=== PATIENT | male | born 1950 | race Caucasian/White ===

== ENCOUNTER → 2017-06-27 | Outpatient (CLI) | payer MEDICARE, BC, OTHER ==
[~2017-06-27] MED LIST: ANDROGEL75 GM TOP; AVAPRO75 MG PO; ELIQUIS2.5 MG PO; ETODOLAC 400 M400 M1 PO; NIACIN500 MG PO; OXYCODONE HCL 55 MG PO; SYNTHROID50 MCG PO; ZOCOR20 MG PO
== END ==
LOC: M.CT 11:55
DX: R22.0 Localized swelling, mass and lump, head (principal)

== ENCOUNTER 2017-07-24 09:15 | Inpatient (IN) | payer MEDICARE, BC, OTHER ==
[2017-07-13 10:03] LABS: ABSOLUTE BASOPHILS 0.1 thou/uL (0.0-0.2); ABSOLUTE EOSINOPHILS 0.2 thou/uL (0.0-0.7); ABSOLUTE LYMPHOCYTES 2.2 thou/uL (0.8-5.3); ABSOLUTE MONOCYTES 0.9 thou/uL (0.0-1.2); ABSOLUTE NEUTROPHILS 4.1 thou/uL (1.6-8.1); BASOPHILS 1.5 %; EOSINOPHILS 2.6 %; HEMATOCRIT 49.6 % (42.0-52.0); LYMPHOCYTES 29.2 %; MCH 32.6 pg (26.0-34.0); MCHC 34.4 g/dL (28.0-37.0); MCV 94.8 fL (80.0-100.0); MONOCYTES 11.7 %; MPV 7.8 fl. (7.2-11.1); NUCLEATED RBCS 0 /100WBC; PLATELET COUNT* 201 thou/uL (150-400); RBC 5.23 mil/uL (4.50-6.00); RDW-CV 12.7 % (10.5-14.5); WBC 7.5 thou/uL (4.0-11.0)
[2017-07-13 10:11] LABS: PROTIME 10.2 Seconds (9.20-11.50)
[2017-07-13 10:20] LABS: ALBUMIN 3.3 g/dL (3.4-5.0); CALCIUM 8.8 mg/dL (8.5-10.1); POTASSIUM 4.1 mmol/L (3.5-5.1); TOTAL PROTEIN 6.8 g/dL (6.4-8.2)
[2017-07-13 11:08] LABS: ESR (SEDRATE) 3 mm/hr (0-20)
--- NOTE | 2017-07-13 14:47 | EKG ---
[place] [address] ELECTROCARDIOGRAM REPORT Name: KAREN OLIVA Room: PRE IN [facility]#: [id number] Admission: Attend Phys: Maryanne Mahmood Discharge: Date of : 52 Report #: [id number] THIS REPORT FOR: //name// [facility] Test Date: 2017-07-13 Test Time: 09:19:23 Pat Name: KARENCOLLINS OLIVA Department: Room: Gender: M Club Car Attendant: : 1950 Requested By: Taz Elmore Order Number: [id number] Reading MD: Leoncio Zuniga Measurements Intervals [place] Rate: 79 P: -31 WI: 141 QRS: -58 QRSD: 119 T: 117 QT: 328 QTc: 376 Interpretive Statements Sinus rhythm Incomplete RBBB and LAFB Left ventricular hypertrophy Nonspecific T abnormalities, lateral leads No previous ECG available for comparison Electronically Signed On 07-13-2017 14:47:04 BUFFET SERVER by Leoncio Zuniga [email or web address] <ELECTRONICALLY SIGNED> By: Leoncio Zuniga MD, [facility] 07/13/17 1447 0919 8 Leoncio Zuniga MD, FACC /EPI
[~2017-07-24] VITALS: Ht 180.3 cm; Wt 111.1 kg
[~2017-07-24 09:15] MED LIST changes: -ELIQUIS2.5 MG PO; -OXYCODONE HCL 55 MG PO
[2017-07-24 12:30] VITALS: BP 146/84
--- NOTE | 2017-07-24 18:30 | NUR ---
PT ARRIVED TO UNIT. PT A&OX4,ORIENTED TO ROOM. CALL LIGHT WITHIN REACH. AT BS.
[2017-07-24 19:01] VITALS: BP 156/75
[2017-07-25 00:52] VITALS: BP 142/78
[2017-07-25 04:41] VITALS: BP 125/64
[2017-07-25 04:44] LABS: HEMATOCRIT 44.3 % (42.0-52.0); HEMOGLOBIN 15.4 gm/dL (14.0-18.0)
--- NOTE | 2017-07-25 07:37 | NUR ---
PATIENT ALERT AND ORIENTED. VITALS STABLE. ON 1L OF OXYGEN. CPAP AT HS. FLUIDS INFUSING PER ORDER. UP WITH ASSIST X 1 TO BATHROOM. AMBULATED IN ROOM. RIGHT KNEE DRESSING C/D/I. ICEPACKS IN PLACE. PAIN CONTROLLED WITH PO MEDICATION. DENIES NAUSEA. HOURLY ROUNDS. BED ALARM IN USE. HOURLY ROUNDS. NURSING WILL CONTINUE TO MONITOR.
[2017-07-25 08:00] VITALS: BP 166/79
--- NOTE | 2017-07-25 09:14 | NUR ---
RECIEVED O.T. EVAL AND TX ORDERS. WILL DEFER TO P.T. AND NURSING AT THIS TIME. PLEASE ORDER FURTHER O.T. SERVICES IF NEEDED.
[2017-07-25 10:50] VITALS: BP 166/79
[2017-07-25] MEDS ORDERED: OXYCODONE HCL 55 MG PO (10:54)
[2017-07-25] MEDS ORDERED: ELIQUIS2.5 MG PO (10:55)
--- NOTE | 2017-07-25 11:15 | NUR ---
CALLED IN PRESCRIPTION FOR ELIQUIS, WRITTEN ,TO [facility]. LEFT ON PROVIDER LINE. WILL CALL BACK XIAO TO CHECK COPAY.
[2017-07-25 11:33] VITALS: BP 166/79
--- NOTE | 2017-07-25 11:38 | NUR ---
CM SPOKE TO THE PATIENT TO DISCUSS HOME SITUATION, DISCHARGE PLANNING, AND TO INFORM OF THE ROLE OF CM. PATIENT ALERT, ORIENTED, AND INDEPENDENT WITH ADL'S. PATIENT RESIDES AT HOME WITH AND SHE WILL ASSIST THE PATIENT AT HOME AT D/C. PATIENT OWNS A WALKER, AND CANE. PATIENT USES A CPAP AT HOME. PATIENT HAS NO HX OF HH OR SNF. PATIENT STATES THAT HE PLANS TO HAVE OUTPATIENT PT AT D/C WITH [facility]. CM WILL REMAIN AVAILABLE T0 ASSIST AND FOLLOW NEEDED.
--- NOTE | 2017-07-25 12:51 | NUR ---
ALERT AND ORIETNED X4. UP WITH STAND BY ASSIST WITH WALKER AND GAIT BELT. IV DC'D. PAIN BEING MANAGED WITH PO PAIN MEDICATION. DENIES NAUSEA. ATTENDED THERAPY THIS AM. MINOR HOSE IN PLACE BILATERALLY. ALL PERSONAL ITEMS LEFT WITH PATIENT. DISCHARGE INSTRUCTIONS, PRESCRIPTIONS, AND NEW MEDICATION INFORMATION SENT WITH PATIENT. VSS ON ROOM AIR. HOURLY ROUNDS HAVE BEEN MAINTAINED THROUGHOUT SHIFT. LEFT WITH VIA CAR.
[2017-07-25 12:55] VITALS: BP 166/79
--- NOTE | 2017-07-25 15:38 | NUR ---
I have reviewed the documentation by ZCAH OSBORNE from 07/25/17 to 07/25/17 and I concur with it. JOSE M FLORES
--- NOTE | 2017-07-27 12:52 | S ---
[address] [address] SURGICAL PATH RPT PROCEDURE Name: KAREN GERARDO Room: [address] IN .R.#: [id number] Admission: 07/24/17 Date of : 52 Discharge: 07/25/17 Report #: [id number] Path Case #: [id number] PATHOLOGY REPORT COLLECTION DATE: 07/24/2017 RECEIVED DATE: 07/25/2017 SUBMITTING PHYS: Dr. Taz Elmore OTHER PHYS: Dr. Jhony Mujica SPECIMEN(S) RECEIVED: A.Right knee bone and tissue * * * * * * * * * * * * FINAL DIAGNOSIS: Right knee bone and tissue, unicompartmental knee replacement: - Benign dense fibrous connective tissue and benign bone and cartilage with severe degenerative changes. (DONOVAN:db; 07/27/2017) PATHOLOGIST: Gurdeep Lopez M.D. REPORT ELECTRONICALLY SIGNED BY: Gurdeep Lopez M.D. DATE/TIME: 07/27/2017 12:52 * * * * * * * * * * * * GROSS PATHOLOGY: Received in formalin labeled "Karen Gerardo, right knee bone and tissue," are multiple segments of bone, including partial tibial plateau, measuring 8.3 x 5.5 x 0.8 cm in aggregate dimensions that appear grossly consistent with a unicompartmental knee replacement specimen. Scant attached soft tissue is present, and meniscus is absent. The specimen shows focal eburnation of the articular surfaces. Room Cooler Installer sections of bone and soft tissue are submitted in cassette A1, following decalcification. (DAC; 07/26/2017) CLINICAL HISTORY: Right knee degenerative joint disease INITIAL CPT CODE(S): A; 01451, 65415 Professional services performed by [facility] at [facility], [address] [place] [address]., [place] [address]. [facility] at [address] [place] [address], [address] [address]. [place] [address] SURGICAL PATH RPT PROCEDURE Name: KAREN GERARDO Room: [address] M.R.#: [id number] Admission: 07/24/17 Date of : 52 Discharge: 07/25/17 Report #: [id number] Path Case #: [id number] [facility] [address] PHONE: [phone] DIRECTOR: Wicho Street M.D. * * * END OF REPORT * * *
--- NOTE | 2017-07-31 12:12 | OP ---
[address] [address] OPERATIVE REPORT Name: HAZELKAREN L Room: [address]#: [id number] Admission: 07/24/17 Attend Phys: Louis Mujica MD Discharge: 07/25/17 Date of : 52 Report #: [id number] THIS REPORT FOR: //name// CC: Louis Elmore DATE OF SERVICE: 07/24/2017 PREOPERATIVE DIAGNOSIS: Advanced degenerative joint disease, right knee. POSTOPERATIVE DIAGNOSIS: Advanced degenerative joint disease, right knee. PROCEDURE: Right unicompartmental knee arthroplasty. SURGEON: Taz Elmore DO. GRAVEL MACHINE OPERATOR: Dorian Hernandez DO and Joseph Cruz DO. ANESTHESIA: General endotracheal and adductor block. IMPLANTS: A [employer]omet unicompartmental knee system [place] with a size C right medial tibial tray, a size medium 2 pegged femur, a size 4 mm thick meniscal bearing. ESTIMATED BLOOD LOSS: 100 mL. ANTIBIOTICS: 2 grams Ancef IVPB 30 minutes prior to incision. SPECIMENS: None. COMPLICATIONS: None. DISPOSITION: To recovery room in stable condition. INDICATIONS FOR SURGERY: The patient is a 66-year-old male who has failed conservative treatment to date with severe right knee pain. He has advanced degenerative joint disease with [id number] apposition of the medial joint space of his right knee. He has a fixed flexion contracture 5 degrees. He is able to show slight straightening of the varus deformity noted. The patient has pain on everyday activities. He is now awakened at night. He has failed conservative treatment in the form of multiple injections, anti-inflammatories by mouth, bracing. He has had physical therapy and he has also done behavioral modification. Risks and complications were discussed in detail with the patient. These include but are not limited to neurovascular damage, infection, fracture, need for further surgery, failure of the prosthesis, [place] [address] OPERATIVE REPORT Name: KAREN OLIVA Katarzyna Room: [address]#: [id number] Admission: 07/24/17 Attend Phys: Louis Mujica MD Discharge: 07/25/17 Date of : 52 Report #: [id number] prosthesis, allergy developed to prosthesis, deep vein thrombosis, pulmonary emboli, myocardial infarction, rhabdomyolysis, even . All questions were answered. A signed informed consent is attached to the chart, may refer to and his knee is marked preoperatively for timeout technique. SURGICAL PROCEDURE: The patient was taken to the operating suite, placed on the operating table in supine position. Following general endotracheal anesthetic and adductor block, his right leg was prepped and draped in usual sterile fashion with a tourniquet at the proximal right thigh, which was placed up to 290 mmHg pressure. Then, the leg was placed on the [place] leg esqueda. All pressure points well padded. Timeout technique is utilized to verify appropriate surgical site, procedures, concerns, allergies and implants. A medial incision is made, a medial arthrotomy incision through skin and subcutaneous tissue down to the capsule. A capsulorrhaphy was then performed to the medial aspect of the patella. The medial meniscus was removed. Some of the fat pad was removed to the patella as well as some fat to the tissue medially. The lateral joint is thoroughly examined and there is no arthritic change to the femoral condyle and/or tibial plateau. The lateral meniscus is intact. The ACL is intact and stable. Therefore, decision to proceed with unicompartmental knee is made at this time. The osteophytic lipping medially and in the intercondylar notch is removed with a small osteotome and rongeur. The external tibial guide is applied in all planes and a resection is made to the proximal tibia roughly 2-3 mm below the lowest point on the tibia. It is then checked with the appropriate sized tibial tray, size C and a 3 mm spacer. A second resection was performed with a 2 mm more of the resection and the size 3 and 4 spacer fit at 110 degrees quite well. Therefore, the cut was appropriate. Next, an intramedullary nail is placed to the femur after a starter hole was performed approximately 1 cm attachment of the PCL anteriorly. Once the intramedullary mynor is inserted, the distal femoral cutting guide is applied and aligned in all planes and the 2 step drills were placed. The cutting guide is then removed. The cutting block is placed into the step drill holes. The posterior condylar cut was then performed and removed. The cutting guide was removed and the zero spigot is placed. The distal femur medial side is reamed with a circular reamer. A trial reduction is performed with the femoral component and a tibial tray and the size 4 spacer at 110 degrees flexion. It is then tried again at 20 degrees flexion and the #1 tayler did not fit; therefore, a size 4 spigot was obtained. A second reaming is performed to the size 4. The extra bone is removed from the tip of the spigot hole as well as posterior condyle. Trial reduction was performed once again and the 4 mm spacer fit equally at the 110 degree and the 20 degree. The posterior cutting check block is placed on the medial femur and this posterior condyle was checked for osteophytes, none were noted. The proximal anterior aspect of the femur was then reamed to get rid of any bone that might impinge on extension to the tibial bearing. The checking block is removed. The tibia is then prepared for the final finned tibial tray by placing a trial tray on the tibia pinning into place and using the toothbrush saw to prepare for the fin. This was then checked with the specialized [place] [address] OPERATIVE REPORT Name: KAREN OLIVA Katarzyna Room: [address]#: [id number] Admission: 07/24/17 Attend Phys: Louis Mujica MD Discharge: 07/25/17 Date of : 52 Report #: [id number] Copious irrigation carried out throughout the knee. The knee is then drilled in a pattern with the cement drill for better interdigitation on the femur and the tibia. One bag of [place] cement plain was mixed on the back table while pulsatile lavage utilized to thoroughly cleanse the knee. The knee was thoroughly dried. Once the cement was appropriate, it was placed onto the final components and cement was then placed on to the tibia, pressurized into the interstices of bone with a cement spatula. Once the cement was in place, the final component was then impacted firmly into place with the microscope impactor and mallet. All excess cement was removed. The femur was then impacted after placing cement into the interstices of the bone of the femur as well as placed him on the final component. Once again, all excess cement was removed. A trial 4 mm spacer was placed. Knee was placed through range of motion. This was the appropriate size spacer with excellent range of motion, excellent stability through an arc of 0-130 degrees easily. The final component was obtained. Trial component was removed. Posterior capsule of the knee is injected with the anesthetic solution. Copious irrigation carried out throughout the incision and the final spacer is a tibial meniscal bearing is then placed. This was a very stable configuration with excellent range of motion and good balance throughout the entire arc of motion. Copious irrigation carried out one more time through the knee. The knee is then sprinkled with vancomycin powder throughout the all soft tissue areas. The knee is then closed with a #1 Stratafix suture running to the capsule. Skin is then reapproximated with the use of 2-0 Monocryl subcutaneous sutures in interrupted fashion followed by running 3-0 Stratafix subcuticular suture reinforced with Dermabond glue. The knee is held at 45 degrees of flexion with pressurization across the knee during the closure and cement hardening. After glue hardening, the Mepilex dressing was applied followed by a thigh high MINOR hose. The patient tolerated the procedure well and was taken to recovery in stable condition. No complications encountered. Final sponge and instrument counts correct x 2. <ELECTRONICALLY SIGNED> By: Taz Elmore DO 07/31/17 1212 1720 [id number] Elmore DO /nt
== END 2017-07-25 12:55 | disposition home or self-care (01) | DRG 470 ==
LOC: M.PRE 09:15 → M.TBA 12:25 → M.ORTHSURG 12:25 → M.PRE 12:38 → M.ORTHSURG 18:35
PROVIDERS: Orthopaedic Surgery; ADMIT Internal Medicine
PROC: 0SRC0L9 Replacement of Right Knee Joint with Medial Unicondylar Synthetic Substitute, Cemented, Open Approach (ICD-10-PCS; principal; 2017-07-24)
DX: M17.11 Unilateral primary osteoarthritis, right knee (principal); Z79.899 Other long term (current) drug therapy; E87.5 Hyperkalemia; E03.9 Hypothyroidism, unspecified; G47.30 Sleep apnea, unspecified; L53.8 Other specified erythematous conditions

== ENCOUNTER → 2018-01-15 | Outpatient (CLI) | payer MEDICARE, BC, OTHER ==
[~2018-01-15] MED LIST changes: +ELIQUIS2.5 MG PO; +OXYCODONE HCL 55 MG PO
== END ==
LOC: M.RAD 11:30
DX: J18.9 Pneumonia, unspecified organism (principal); R06.00 Dyspnea, unspecified

== ENCOUNTER → 2018-02-07 | Outpatient (CLI) | payer MEDICARE, BC, OTHER | LOC: M.RAD 10:39 | DX: M47.816 Spondylosis without myelopathy or radiculopathy, lumbar region (principal); R06.09 Other forms of dyspnea; E03.9 Hypothyroidism, unspecified; G47.30 Sleep apnea, unspecified ==

== ENCOUNTER → 2019-03-26 | Outpatient (CLI) | payer MEDICARE, BC, OTHER | LOC: M.RAD 09:10 | DX: M17.11 Unilateral primary osteoarthritis, right knee (principal) ==